=== PATIENT | female | born 1985 | race Caucasian/White ===

== ENCOUNTER 2017-01-31 21:25 | Emergency (ER) | payer SELFPAY ==
[~2017-01-31] VITALS: Ht 170.2 cm; Wt 67.6 kg
[~2017-01-31 21:25] MED LIST: ALPR1TAB2 PO
[2017-01-31] MEDS ORDERED: ONDANSETRON 2MG/ML, 2ML ONE (22:29)
[2017-01-31] MEDS ORDERED: MORPHINE SULFATE 4 MG/ML, 1ML ONE ×2 (22:29→23:37)
[2017-01-31] MEDS ORDERED: SODIUM CHLORIDE FLUSH 10ML SYR IVF ONE (22:30)
[2017-01-31] MEDS ORDERED: SODIUM CHLORIDE 0.9% 1,000ML IV ONE (22:30)
[2017-01-31] MEDS ORDERED: ONDANSETRON 2MG/ML, 2ML IVPush ONE (22:30)
[2017-01-31] MEDS: MORPHINE SULFATE 4 MG/ML, 1ML IVPush PRN ×2 (22:31→23:39)
[2017-01-31 22:49] LABS: ASPARTATE AMINO TRANSFERASE 30 U/L (15-37); BLOOD UREA NITROGEN 9 mg/dL (7-18)
[2017-01-31] MEDS ORDERED: DIPHENHYDRAMINE 25 MG CAPSULE ONE (22:54)
[2017-01-31] MEDS ORDERED: DIPHENHYDRAMINE 25 MG CAPSULE PO ONE (23:00)
[2017-01-31 23:41] VITALS: BP 125/84
== END 2017-02-01 00:09 | disposition home or self-care (01) ==
LOC: ED 23:51
DX: R10.12 Left upper quadrant pain (principal); R10.32 Left lower quadrant pain; Z88.2 Allergy status to sulfonamides; Z88.8 Allergy status to other drugs, medicaments and biological substances
CPT/HCPCS: 36415; 74176; 80053; 81003; 83690; 84703; 85025; 96374; 96375; 99285; J2405; J7030; Q0163

== ENCOUNTER 2017-06-12 11:36 | Emergency (ER) | payer SELFPAY ==
[~2017-06-12] VITALS: Ht 167.6 cm; Wt 66.0 kg
[2017-06-12 11:48] VITALS: BP 110/77
== END 2017-06-12 14:08 | disposition left against medical advice (07) ==
LOC: ED 14:02
DX: B34.9 Viral infection, unspecified (principal)
CPT/HCPCS: 71020; 99284

== ENCOUNTER 2020-04-13 10:16 | Emergency (ER) | payer OTHER ==
[~2020-04-13] VITALS: Ht 167.6 cm; Wt 69.1 kg
--- NOTE | 2020-04-13 10:50 | NUR ---
ASSUMED CARE OF PT AT THIS TIME FROM LOBBY. AMBULATORY TO ROOM WITH STEADY GAIT. MARY FLORES AT BEDSIDE FOR EVALUATION. 35 Y/O F PRESENTS CRYING AND VERY EMOTIONAL STATING "I'M IN SEVERE PAIN IN MY STOMACH, I THINK IT'S MY KIDNEY OR MY APPENDIX. I WAS BORN WITH NEUROURETER, I'VE HAD 45 SURGERIES ON MY LEFT KIDNEY AND THEN THEY TOOK OUT, THEN I HAD SOME IMAGINGING AND THEY SAID I HAD ENLARGED RIGHT KIDNEY, APPENDIX AND GALLSTONES, SO I HAD THE GALLBLADDER BUT THEY DIDN'T TAKE APPENDIX." CONT PULSE OX, BP, CARDIAC MONITORS APPLIED. VSS. SR ON MONITOR. CALL LIGHT IN REACH. FALL PRECUATIONS IN PLACE. ASSESSMENT COMPLETED. RLQ TENDER TO PALPATION. BOWEL SOUNDS ACTIVE. RATES PAIN 8/10. DENIES N/V/D, VAGINAL BLEEDING OR PAIN, CP OR SOB.
[2020-04-13] MEDS ORDERED: ONDANSETRON 2MG/ML, 2ML IVPush ONE (11:00)
[2020-04-13] MEDS ORDERED: SODIUM CHLORIDE FLUSH 10ML SYR IVF ONE (11:00)
[2020-04-13] MEDS ORDERED: ONDANSETRON 2MG/ML, 2ML ONE (11:05)
[2020-04-13] MEDS ORDERED: HYDROmorphone 1 MG/ML, 1ML INJ ONE ×2 (11:05→11:44)
[2020-04-13] MEDS: HYDROmorphone 2 MG/ML, 1ML IVPush PRN ×2 (11:08→11:50)
[2020-04-13 11:10] LABS: MICROSCOPIC NOT IND
--- NOTE | 2020-04-13 11:11 | NUR ---
IV HAS BEEN PLACED AND LABS DRAWN NOTED. PT MEDICATED NOTED PER MD ORDER FOR 8/10 ABD PAIN. RESTING COMFORTABLY USING OWN CELL PHONE. PT HAD AMBULATED TO RESTROOM WITH STEADY GAIT PREVIOUSLY, CLEAN CATCH WAS COLLECTED AND SENT TO LAB. VSS. SR ON MONITOR. CALL LIGHT IN REACH. FALL PRECUATIONS IN PLACE. A&OX4. PT MORE CALM, "FEELING LESS ANXIOUS, THANK YOU FOR HELPING."
[2020-04-13] MEDS ORDERED: ACET1TAB64 PO (11:23)
[2020-04-13] MEDS ORDERED: AMIT50TA PO (11:23)
[2020-04-13] MEDS ORDERED: CIPR500T87 PO (11:23)
[2020-04-13 11:24] LABS: BASOPHILS # (AUTO) 0.03 x10^3/uL (0-0.1); BASOPHILS % (AUTO) 1 % (0-1); EOSINOPHILS # (AUTO) 0.08 x10^3/uL (0-0.4); EOSINOPHILS % (AUTO) 1 % (1-7); LYMPHOCYTES # (AUTO) 1.97 x10^3/uL (1-3.4); LYMPHOCYTES % (AUTO) 32 % (22-44); MD NO; MEAN CORPUSCULAR HGB CONC 33.2 g/dL (32.4-35.8); MEAN CORPUSCULAR VOLUME 99.4 fL (80-100); MEAN PLATELET VOLUME 8.3 fL (7.4-10.4); MONOCYTES # (AUTO) 0.56 x10^3/uL (0.2-0.8); MONOCYTES % (AUTO) 9 % (2-9); NEUTROPHILS # (AUTO) 3.52 x10^3/uL (1.8-6.8); NEUTROPHILS % (AUTO) 57 % (42-75); PLATELET COUNT 265 x10^3/uL (130-400); RED BLOOD COUNT 4.27 x10^6/uL (3.82-5.3); RED CELL DISTRIBUTION WIDTH 12.7 % (9.6-15.2)
[2020-04-13 11:34] LABS: ALBUMIN 3.7 g/dL (3.4-5.0); ANION GAP 8 mmol/L (5-15); CALCIUM 9.1 mg/dL (8.5-10.1); CHLORIDE 109 mmol/L (98-107)
--- NOTE | 2020-04-13 11:41 | NUR ---
PT REPORTS PAIN "FEELING A LITTLE BETTER, STILL HAVE THE PAIN THOUGH, MAYBE 7-8/10, CAN I HAVE MORE PAIN MEDICINE PLEASE AND MAYBE SOMETHING FOR ANXIETY." TO DISCUSS PAIN/REQUEST WITH MARY CASTRO
[2020-04-13 11:42] LABS: ALANINE AMINOTRANSFERASE 91 U/L (12-78); ALKALINE PHOSPHATASE 56 U/L (45-117); BILIRUBIN,TOTAL 0.4 mg/dL (0.2-1.0); CREATININE 0.74 mg/dL (0.55-1.02); TOTAL PROTEIN 7.2 g/dL (6.4-8.2)
--- NOTE | 2020-04-13 11:51 | NUR ---
DR. CLEANING AT BEDSIDE FOR EVALUATION, DISCUSSING SYMPTOMS/PAIN WITH PT. PT MEDICATED NOTED PER MD ORDER FOR "15/10 STOMACH PAIN ON THE RIGHT LOWER SIDE, COMING IN WAVES." VSS. CALL LIGHT IN REACH. FALL PRECAUTIONS IN PLACE. DENIES NEED TO USE RESTROOM.
[2020-04-13] MEDS ORDERED: KETOROLAC 30 MG/1 ML IVPush ONE (12:00)
[2020-04-13] MEDS ORDERED: LORazepam 2 MG/ML, 1ML ONE (12:03)
[2020-04-13] MEDS ORDERED: KETOROLAC 30 MG/1 ML ONE (12:04)
--- NOTE | 2020-04-13 12:08 | NUR ---
PT MEDICATED PER REQUEST AND DR. CLEANING WITH ATIVAN FOR ANXIETY. AWAITING CT. REPORTS PAIN IMPROVED TO 6/10 IN ABD "REALLY MUCH BETTER, I CAN HANDLE THIS. I REALLY WANT THEM TO TAKE MY APPENDIX I THINK THAT IS WHAT THIS IS." VSS. SR ON MONITOR. CALL LIGHT IN REACH. FALL PRECAUTIONS IN PLACE.
[2020-04-13] MEDS ORDERED: LORazepam 2 MG/ML, 1ML IVPush ONE (12:30)
[2020-04-13] MEDS ORDERED: SODIUM CHLORIDE 0.9% 1,000ML IVBOLUS ONE (12:30)
--- NOTE | 2020-04-13 12:40 | NUR ---
PT AMBULATED TO NURSING STATION WITH STEADY GAIT HOLDING IV, ASKING THIS RN AND MARY FLORES TO LEAVE DEPARTMENT TO "GO TO CAR TO GET HER COMPUTER TO WORK." EXPLAINED TO PT THAT WE CAN NOT LET HER LEAVE DEPARTMENT WITH IV AND MEDICATIONS ON BOARD, PT VERBALIZED UNDERSTANDING, ALTHOUGH UPSET AND STATING "YOU GUYS MIGHT MAKE ME LOOSE MY JOB, I NEED MY COMPUTER." ASKED PT IF ANYONE COULD COME AND GET COMPUTER FOR HER, SHE STATED HER MOM COULD. SECURITY CALLED AND ASKED FOR ASSISTANCE "UNABLE TO GET PERSONAL BELONGINGS FROM PT VEHICLE." BRAZING FURNACE OPERATOR KASEY AND ED SUP AWARE. PT'S MOTHER TO BRING COMPUTER IN FOR PT, TO CALL WHEN HERE. PT AMBULATED BACK TO BED WITH STEADY GAIT. RESTING COMFORTABLY. REPORTS PAIN AND ANXIETY IMPROVED. VSS. CALL LIGHT IN REACH. FALL PRECUATIONS IN PLACE
--- NOTE | 2020-04-13 13:06 | NUR ---
PT AWAITING CT, CT CALLED, TO COME TAKE PT. PT REPORTS "THE DILAUDID HAD MADE ME REALLY ITCHY, IT'S TOELRABLE BUT ANNOYING. THE PAIN IS BETTER, IT'S LIKE 6/10 BUT TOLERABLE, I DON'T NEED MORE MEDICINE RIGHT NOW, MAYBE BENADRYL FOR THE ITCHING." TO DISCUSS REQUEST WITH ERP. CALL LIGHT IN REACH. VSS. FALL PRECAUTIONS IN PLACE. DENIES NEED TO USE RESTROOM
[2020-04-13] MEDS ORDERED: DIPHENHYDRAMINE 50 MG/ML, 1ML ONE (13:11)
[2020-04-13] MEDS ORDERED: DIPHENHYDRAMINE 50 MG/ML, 1ML IVPush ONE (13:30)
--- NOTE | 2020-04-13 13:31 | NUR ---
PT MEDICATED NOTED PER ORDER FOR "ITCHING." RESTING COMFORTABLY. VSS. USING OWN CELL PHONE. CONT AWAITING CT. PT REQUESTING FOOD, PER DR. CLEANING NO FOOD AT THIS TIME. PT VERBALIZED UNERSTANDING. CALL LIGHT IN REACH. FALL PRECAUTIONS IN PLACE. PT KEEPS REMOVING MONITORS, REPLACED AND DISCUSSED NEED, PT AGREES TO LEAVE MONITORS IN PLACE.
--- NOTE | 2020-04-13 13:36 | NUR ---
MARY FLORES AT BEDSIDE DISCUSSING POC WITH PT. CONT AWAITING CT.
--- NOTE | 2020-04-13 13:44 | NUR ---
PT CALLED CLIENT SUPPORT ASSOCIATE LIGHT REQUESTING RESTROOM. AMBULATED TO RESTROOM WITH STEADY GAIT. ASSISTED BACK TO BED, RESTING COMFORTABLY. WARM BLANKETS PROVIDED. VSS. PT ORDERING "DONALD EDWARD, I'M STARVING, MY FRIEND WILL BRING IT TO ME." DISCUSSED WITH PT PER MD NOT TO EAT AT THIS TIME UNTIL CT COMPLETED/RESULTED, VERBALIZED UNDERSTANDING. CALL LIGHT IN REACH. FALL PRECUATIONS IN PLACE
--- NOTE | 2020-04-13 14:06 | NUR ---
PT REPORTS ITCHING IMPROVING. VSS. TO CT AT THIS TIME
[2020-04-13] MEDS ORDERED: OMNIPAQUE 350 MG/ML, 100ML BOTTLE ONE (14:30)
--- NOTE | 2020-04-13 14:38 | NUR ---
PT BACK FROM CT. AMBULATED TO RESTROOM WITH STEADY GAIT. RESTING COMFORTABLY. VSS. CALL LIGHT IN REACH. FALL PRECAUTIONS IN PLACE. AWAITING CT RESULTS.
--- NOTE | 2020-04-13 14:41 | NUR ---
PT UP FOR RECHECK
--- NOTE | 2020-04-13 14:54 | NUR ---
PT CALLING ENDING MACHINE OPERATOR LIGHT, SCREAMING AND MOANING IN PAIN "THE PAIN IS BACK IT HURTS." WALK INTO ROOM, PT STOPS SCREAMING, USING CELL PHONE, STATES "THANK YOU ADELINA, IT WILL BE OKAY, I CAN GO HOME SOON AND TAKE MY OWN PAIN MEDICATIONS IF I NEED TOO." DISCUSSED PAIN WITH MARY FLORES, NO ORDERS RECEIVED AT THIS TIME, AWAITING RECHECK, TO SEE PT. VSS. CALL LIGHT IN REACH. FALL PRECAUTIONS IN PLACE
--- NOTE | 2020-04-13 15:02 | NUR ---
PT PICKED UP HER IV FLUIDS, LEFT HER ROOM, AMBULATING DOWN HALLWAY STATING THAT "MY FRIEND IS DROPPING SOMETHING OFF FOR ME". PT REMINDED THAT SHE NEEDS TO BE IN HER ROOM SO THAT SHE CAN BE REEVALUATED BY THE ERP.
--- NOTE | 2020-04-13 15:10 | NUR ---
PT FRIEND ARRIVED AT BEDSIDE, WITH DONALD EDWARD FOR PT, PT AWAITING TO DISCUSS POC AND ANSWER/ADDRESS PT QUESTIONS/CONCERNS
[2020-04-13 15:11] VITALS: BP 123/63
--- NOTE | 2020-04-13 15:43 | NUR ---
CONTINUE AWAITING RECHECK FROM DR. CLEANING, PT MOANING AND CRYING IN PAIN. DISCUSSED PAIN WITH DR. CLEANING, AWARE, NO NEW ORDERS RECEIVED.
== END 2020-04-13 15:48 | disposition home or self-care (01) ==
LOC: ED 11:28
DX: R10.31 Right lower quadrant pain (principal)
CPT/HCPCS: 36415; 74177; 80053; 81003; 84703; 85025; 96361; 96374; 96375; 96376; 99285; J1170; J1200; J1885; J2060; J2405; J7030; Q9967

== ENCOUNTER 2021-03-09 04:31 | Emergency (ER) | payer SELFPAY ==
[~2021-03-09] VITALS: Ht 167.6 cm; Wt 68.2 kg
[~2021-03-09 04:31] MED LIST changes: +ACET1TAB64 PO; +AMIT50TA PO; +CIPR500T87 PO
[2021-03-09] MEDS ORDERED: ONDANSETRON 2MG/ML, 2ML ONE (04:53)
[2021-03-09] MEDS ORDERED: MORPHINE SULFATE 4 MG/ML, 1ML ONE ×2 (04:53→06:07)
[2021-03-09] MEDS ORDERED: ONDANSETRON 2MG/ML, 2ML IVPush ONE (05:00)
[2021-03-09] MEDS: MORPHINE SULFATE 4 MG/ML, 1ML IVPush PRN ×2 (05:05→06:15)
--- NOTE | 2021-03-09 05:24 | NUR ---
PT MEDICATED PER EMAR. US AT BEDSIDE. PT VERY ANXIOUS AND CRYING. PT VERY WORRIED ABOUT . THIS RN ATTEMPTED TO REASSURE PT. LABS DRAWN, PT ON CONTINUOUS PULSE OX.
[2021-03-09 05:28] LABS: BASOPHILS % (AUTO) 1 % (0-1); EOSINOPHILS % (AUTO) 1 % (1-7); LYMPHOCYTES % (AUTO) 40 % (22-44); MEAN CORPUSCULAR HEMOGLOBIN 32.6 pg (27.0-34.8); MEAN PLATELET VOLUME 8.4 fL (7.4-10.4); MONOCYTES % (AUTO) 12 % (2-9); NEUTROPHILS % (AUTO) 47 % (42-75); PLATELET COUNT 273 x10^3/uL (130-400); RED BLOOD COUNT 4.36 x10^6/uL (3.82-5.3); RED CELL DISTRIBUTION WIDTH 13.8 % (9.6-15.2)
[2021-03-09 05:40] LABS: ALBUMIN 3.5 g/dL (3.4-5.0); ANION GAP 9 mmol/L (5-15); CHLORIDE 111 mmol/L (98-107)
[2021-03-09 05:46] LABS: ALANINE AMINOTRANSFERASE 24 U/L (12-78); ALKALINE PHOSPHATASE 48 U/L (45-117); BILIRUBIN,TOTAL 0.4 mg/dL (0.2-1.0); CREATININE 0.66 mg/dL (0.55-1.02); TOTAL PROTEIN 7.1 g/dL (6.4-8.2)
[2021-03-09 06:12] VITALS: BP 107/61
--- NOTE | 2021-03-09 06:53 | NUR ---
RECEIVED REPORT FROM ADORE BLEVINS, PLAN OF CARE DISCUSSED
--- NOTE | 2021-03-09 07:23 | NUR ---
PT LEFT WITHOUT DISCHARGE PAPERWORK
== END 2021-03-09 07:41 | disposition home or self-care (01) ==
LOC: ED 07:40
DX: O20.0 Threatened abortion (principal); Z3A.01 Less than 8 weeks gestation of pregnancy; Z87.891 Personal history of nicotine dependence
CPT/HCPCS: 36415; 76801; 80053; 84702; 85025; 86901; 96374; 96375; 96376; 99284; J2270; J2405